=== PATIENT | male | born 1980 | race Caucasian/White ===

== ENCOUNTER → 2021-09-17 | Outpatient (CLI) | payer BC ==
[2021-09-17 10:26] LABS: HEMOGLOBIN 16.5 gm/dl (14.0-17.5); RED BLOOD COUNT 5.21 M/UL (4.20-5.50); WHITE BLOOD COUNT 4.3 K/UL (4.5-11.0)
[2021-09-17 10:52] LABS: BUN/CREATININE RATIO 16 (0-10)
[2021-09-18 08:14] LABS: THYROXINE (T4) 6.5 ug/dL (4.5-12.0)
[2021-09-18 09:14] LABS: VITAMIN D, 25-HYDROXY 36.9 ng/mL (30.0-100.0)
[2021-09-19 18:12] LABS: TESTOSTERONE, SERUM 438 ng/dL (264-916)
== END ==
LOC: LAB 09:47
PROVIDERS: Nurse Practitioner Family
DX: I10 Essential (primary) hypertension (principal); E78.5 Hyperlipidemia, unspecified; R53.83 Other fatigue; R40.0 Somnolence; E55.9 Vitamin D deficiency, unspecified; B94.8 Sequelae of other specified infectious and parasitic diseases
CPT/HCPCS: 36415; 80053; 80061; 82607; 82746; 84402; 84403; 84436; 84443; 84481; 85027; 85652; 86038; 86140